=== PATIENT | male | born 1950 | race Caucasian/White ===

== ENCOUNTER 2023-03-24 10:46 | Emergency (ER) | payer MEDICARE, SELFPAY ==
--- NOTE | 2023-03-24 10:54 | ED.MALEGU ---
HPI - Male Genitourinary General Chief complaint: Urogenital-Male Stated complaint: FLANK PAIN/DIFF URINATING Time Seen by Provider: 03/24/23 11:35 Source: patient Mode of arrival: ambulatory Limitations: no limitations History of Present Illness HPI Narrative: Patient is a 72-year-old male who presents with left flank pain since Monday night. Patient has history of kidney stones and states it does feel similar. Patient reports pain is a 6/10 and a dull constant ache. Patient does have urinary urgency and frequency but does state small amounts come out. Denies any blood in urine, fever, chills, nausea, vomiting, diarrhea. Related Data Allergies Allergy/AdvReac Type Severity Reaction Status Date / Time No Known Allergies Allergy Mild Verified 03/24/23 10:56 Review of Systems Review of Systems: All systems reviewed & are unremarkable except as noted in HPI and below Constitutional: Constitutional: Denies chills, Denies fever(s), Denies headache(s), Denies malaise and Denies weakness Eyes: Eyes: Denies change in vision, Denies eye discharge and Denies irritation ENT: Denies otalgia, Denies headache(s), Denies nasal congestion, Denies nasal discharge, Denies sinus pain and Denies sore throat Cardiovascular: Cardiovascular: Denies chest pain, Denies edema, Denies palpitations and Denies dyspnea Respiratory: Respiratory: Denies cough and Denies dyspnea Gastrointestinal: Gastrointestinal: Denies abdominal pain, Denies diarrhea, Denies nausea and Denies vomiting Genitourinary: Genitourinary: Denies hematuria, Denies dysuria, Reports flank pain, Reports urinary frequency and Reports urinary urgency Musculoskeletal: Musculoskeletal: Denies back pain and Denies numbness Integumentary/Breasts: Skin/Breast: Denies pruritus and Denies rash Neurologic: Denies headache(s), Denies numbness and Denies weakness Psychiatric: Psychiatric: Reports no additional psychiatric complaints Endocrine: Endocrine: Denies palpitations PMFSH Past Medical History Medical History (Updated 03/24/23 @ 11:54 by Gregoria Harley APRN) Hyperlipidemia Hypothyroidism determined by thyroid function test Metal bone fixation hardware in place Surgical History Surgical History History of adenoidectomy History of surgery on wrist History of tonsillectomy History of total knee arthroplasty Social History Social History Smoking status: Former smoker (quit 30 years ago 2ppd for 15 years) Second hand tobacco smoke exposure: No Smoking end date: 08/07/91 Alcohol intake: current Drinks per week: 2 Substance use: never Substance use type: does not use Living arrangements: with family Occupation/Education: retired Gender identity (if verbalized by the patient): Male Sexual Orientation (if Verbalized by the Patient): Straight or Heterosexual Comments At time of signature, agree with nursing past medical, surgical, social and family history. There is no relevant family history pertinent to the presenting complaint. Exam Const: General: cooperative, healthy appearing, comfortable, no acute distress and well nourished Nutritional Appearance: well nourished Orientation/consciousness: patient oriented x3 HENMT: Head: normocephalic and atraumatic Ears: external ears normal Face/Nose/Sinus: Normal external nose present, Normal nares present and normal facial exam Face and sinus: normal facial exam Eyes: General: appearance normal, both eyes and all related structures Pupils: Equal, round and reactive pupils present EOM: EOMs intact bilaterally Neck: Neck: normal visual inspection, full ROM and supple Chest: Chest palpation & inspection: normal inspection of the chest Resp: Effort & Inspection: normal respiratory effort and able to speak in complete sentences Cardio: Rate: regular rate Rhythm: regular rhythm GI:
[2023-03-24 10:59] VITALS: BP 179/87; PULSE 70; RESP 18; TEMP 37.1; O2SAT 100
== END 2023-03-24 12:07 | disposition home or self-care (01) ==
PROVIDERS: Emergency Provider Nurse Practitioner Family; PCP Family Medicine
DX: R10.9 Unspecified abdominal pain (principal); R35.0 Frequency of micturition; Z87.891 Personal history of nicotine dependence; E78.5 Hyperlipidemia, unspecified; E03.9 Hypothyroidism, unspecified
CPT/HCPCS: 81003; 87086; 87088; 99213; G0463

== ENCOUNTER 2024-09-11 01:09 | Day surgery (SDC) | payer MEDICARE, SELFPAY ==
[2024-08-29 09:47] VITALS: BMI 38.4
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
[2024-09-11 07:59] VITALS: BP 148/78; PULSE 66; RESP 20; TEMP 36.3; O2SAT 98
[2024-09-11] MEDS: LACTATED RINGERS 1,000 ML 150 ML IV CONT (08:11)
--- NOTE | 2024-09-11 08:16 | P.PNAN_ITS ---
Anes - Initial Pre Proc Eval Procedure: Operation Date: 09/11/24 09:00 Proposed Procedures p Screening Colonoscopy - Raphael Thompson MD Date/Time: 09/11/24 08:16 Surgeon: Raphael Thompson MD Pre Op Diagnosis: screening malignant neoplasm colon Patient Data Age: 74 Gender: M Height: 1.75 m Weight: 117.7 kg Last Vital Signs Temp 36.3 C L 09/11/24 07:59 Pulse 66 09/11/24 07:59 Resp 20 09/11/24 07:59 BP 148/78 H 09/11/24 07:59 Pulse Ox 98 09/11/24 07:59 O2 Del Method Room Air 09/11/24 07:59 Allergies Allergy/AdvReac Type Severity Reaction Status Date / Time No Known Allergies Allergy Mild Verified 09/11/24 07:57 Home Medications ?Medication ?Instructions ?Recorded ?Confirmed ?Type fenofibrate 160 mg tablet 160 mg PO DAILY #90 tabs 08/21/23 09/11/24 Rx levothyroxine 137 mcg tablet See Rx Instructions .Route 08/21/23 09/11/24 Rx .COMPLEX #90 tabs clotrimazole-betamethasone 1 1 applic topical BID #45 grams 12/22/23 09/11/24 Rx %-0.05 % topical cream Patient hx anesthesia problems: none Family hx anesthesia problems: none Results Review: All pre-operative results and documents have been reviewed as part of the pre- operative evaluation. [facility] Past Medical History Medical History Hypothyroidism determined by thyroid function test Hyperlipidemia Metal bone fixation hardware in place Surgical History Surgical History History of adenoidectomy History of tonsillectomy History of total knee arthroplasty History of surgery on wrist Social History Social History Smoking status: Never smoker Second hand tobacco smoke exposure: No Smoking end date: 08/07/91 Alcohol intake: current Drinks per week: 2 Alcohol use details: Rarely Substance use: never Substance use type: does not use Living arrangements: with family Additional living arrangements comments: with sp Occupation/Education: retired Gender identity (if verbalized by the patient): Male Sexual Orientation (if Verbalized by the Patient): Straight or Heterosexual Anes - Eval Final PreProcedure Day of Procedure 09/11/24 08:16 Patient weight: obese Heart: regular rate and rhythm Lungs: clear to auscultation Airway: Mallampati scale class III Neurological: alert and oriented Last oral intake: >/= 8 hours ASA classification: III Emergent: no Anesthetic plan: proceed Anesthesia type and monitoring: general GIVS and standard monitoring Results Review: All pre-operative results and documents have been reviewed as part of the pre- operative evaluation. Informed Consent: The patient's anesthetic plan and its attendant risks and benefits were discussed with the patient/family/POA. Questions were solicited and answers provided to the satisfaction of the patient/family/POA.
--- NOTE | 2024-09-11 08:46 | PM.IMHP ---
H&P: HPI History of Present Illness Date/Time: 09/11/24 08:46 Chief Complaint: Screening colonoscopy Narrative: This is the patient's 2nd colonoscopy after 20 years.. There are no GI symptoms and there is no family history of colorectal cancer. Review of Systems Review of Systems: All systems reviewed & are unremarkable except as noted in HPI and below PMFSH Past Medical History Medical History (Updated 09/11/24 @ 08:47 by Raphael Thompson MD) Hypothyroidism determined by thyroid function test Hyperlipidemia Metal bone fixation hardware in place Surgical History Surgical History History of adenoidectomy History of tonsillectomy History of total knee arthroplasty History of surgery on wrist Social History Social History Smoking status: Never smoker Second hand tobacco smoke exposure: No Smoking end date: 08/07/91 Alcohol intake: current Drinks per week: 2 Alcohol use details: Rarely Substance use: never Substance use type: does not use Living arrangements: with family Additional living arrangements comments: with sp Occupation/Education: retired Gender identity (if verbalized by the patient): Male Sexual Orientation (if Verbalized by the Patient): Straight or Heterosexual Meds Home Medications and Allergies Home Medications ?Medication ?Instructions ?Recorded ?Confirmed ?Type fenofibrate 160 mg tablet 160 mg PO DAILY #90 tabs 08/21/23 09/11/24 Rx levothyroxine 137 mcg tablet See Rx Instructions .Route 08/21/23 09/11/24 Rx .COMPLEX #90 tabs clotrimazole-betamethasone 1 1 applic topical BID #45 grams 12/22/23 09/11/24 Rx %-0.05 % topical cream Allergies Allergy/AdvReac Type Severity Reaction Status Date / Time No Known Allergies Allergy Mild Verified 09/11/24 07:57 Vital Signs Vital Signs - 24 hr 09/11/24 07:59 Temperature 97.3 F L Pulse Rate 66 Respiratory Rate 20 Blood Pressure 148/78 H Pulse Oximetry 98 Oxygen Delivery Room Air Exam Const: General: cooperative and healthy appearing Resp: Effort & Inspection: normal respiratory effort and able to speak in complete sentences Auscultation: clear to auscultation bilaterally Cardio: Rate: regular rate Rhythm: regular rhythm GI: Inspection: normal to inspection GI Palp: No No hepatosplenomegaly present Auscultation: normal bowel sounds Rectal Exam: deferred Skin: General skin exam: normal color Psych: Appearance: grossly normal Mental Status: mental status grossly normal Assessment and Plan Assessment and plan (1) Encounter for screening colonoscopy: Code(s): Z12.11 - Encounter for screening for malignant neoplasm of colon Status: Acute Assessment and Plan: The patient is deemed a good candidate for the procedure. Consent signed. Will proceed.
[2024-09-11 09:11] VITALS: BP 107/69; PULSE 57; RESP 20; O2SAT 97
[2024-09-11 09:21] VITALS: BP 100/69; PULSE 60; RESP 16; O2SAT 97
[2024-09-11 09:31] VITALS: BP 149/76; PULSE 60; RESP 18; O2SAT 98
== END 2024-09-11 09:44 | disposition home or self-care (01) ==
PROVIDERS: PCP Family Medicine; Visit Provider Internal Medicine Gastroenterology
PROC: 0DJD8ZZ Inspection of Lower Intestinal Tract, Via Natural or Artificial Opening Endoscopic (ICD-10-PCS; CPT 45378; principal; 2024-09-11 09:00)
DX: Z12.11 Encounter for screening for malignant neoplasm of colon (principal); K57.30 Diverticulosis of large intestine without perforation or abscess without bleeding; E78.5 Hyperlipidemia, unspecified; E03.9 Hypothyroidism, unspecified; E66.9 Obesity, unspecified; Z68.38 Body mass index [BMI] 38.0-38.9, adult; Z98.890 Other specified postprocedural states
CPT/HCPCS: G0121; J2003; J2704; J7120